=== PATIENT | male | born 1965 | race Caucasian/White ===

== ENCOUNTER 2018-05-16 20:36 | Inpatient (IN) | payer BC ==
[~2018-05-16] VITALS: Ht 177.8 cm; Wt 125.2 kg
--- NOTE | 2018-05-16 21:20 | NUR ---
BIBSELF C/O ABD AND LEG SWELLING SINCE MONDAY. PT ALSO STATES SOB. +DIAPHORETIC. PT IS AAOX4. MILD S/S OF DISTRESS NOTED. PT PLACED ON WAREHOUSE SUPERVISOR AND POX. PT NOTED TO BE IN A-FIB WITH RVR, RATE 180BPM, BP STABLE. PT PLACED ON NC 2L/M PER MD. PT SAFETY AND COMOFRT MEASURES IN PLACE. EMT BEDSIDE FOR EKG. MD MADE AWARE. AWAITING MD FOR EVAL.
[2018-05-16 21:32] LABS: BASOPHILS # (AUTO) 0.3 /CMM (0.0-0.2); EOSINOPHILS % (AUTO) 0.4 % (0.0-6.0); HEMATOCRIT 43 % (39-51); LYMPHOCYTES # (AUTO) 1.4 /CMM (0.8-4.8); LYMPHOCYTES % (AUTO) 9.9 % (20.0-44.0); MEAN CORPUSCULAR HEMOGLOBIN 28 PG (26.0-33.0); MEAN CORPUSCULAR HGB CONC 33 g/dl (31.0-36.0); MEAN CORPUSCULAR VOLUME 85 fL (80-96); MONOCYTES % (AUTO) 6.7 % (2.0-12.0); NEUTROPHILS # (AUTO) 11.4 /CMM (1.8-8.9); PLATELET COUNT (AUTO) 333 /CMM (150-450); RDW COEFFICIENT OF VARIATION 15.7 (11.5-15.0); RED BLOOD CELL COUNT(AUTO) 5.02 MIL/uL (4.5-6.0); WHITE BLOOD COUNT (AUTO) 14.2 K/uL (4.3-11.0)
[2018-05-16] MEDS ORDERED: DILTIAZEM HCL 25 MG IV ONE ×4 (21:34→22:35)
[2018-05-16 21:43] LABS: CALCIUM, SERUM 9.3 mg/dL (8.5-10.1); CREATININE 1.7 mg/dL (0.6-1.3); POTASSIUM 4.8 mmol/L (3.5-5.1)
[2018-05-16 21:51] LABS: TROPONIN I 0.096 ng/mL (0.00-0.056)
[2018-05-16 21:56] LABS: ALBUMIN 3.1 g/dL (3.4-5.0); BILIRUBIN,DIRECT 0.4 mg/dL (0.0-0.2); BILIRUBIN,TOTAL 1.3 mg/dL (0.2-1.0); TOTAL PROTEIN, SERUM 6.8 g/dL (6.4-8.2)
[2018-05-16] MEDS ORDERED: DILTIAZEM HCL 25 MG IV IV ONE ×2 (22:00→23:30)
--- NOTE | 2018-05-16 22:01 | NUR ---
PT MEDICATED WITH CARDIZEM 10MG IVP PER MD HARLEY'S VERBAL ORDERS AT 2158.
--- NOTE | 2018-05-16 22:16 | NUR ---
STAIN MAKER CALLED FOR YOVANY TO BE PULLED FROM NIGHT LOCKER
--- NOTE | 2018-05-16 22:25 | NUR ---
CALLED NURSING CONTACT CENTER REPRESENTATIVE AND REQUESTED AN ICU BED FOR THIS PT
[2018-05-16] MEDS ORDERED: DILTIAZEM HCL IV 125 MG in IV NS 0.9% 100 ML IV PRN (22:30)
[2018-05-16] MEDS ORDERED: ASPIRIN 325 MG TABLET PO ONE (22:30)
--- NOTE | 2018-05-16 22:40 | NUR ---
ASSIGNED TO ICU RM#: [id number], DX: A-FIB WITH RVR, ACCEPTING: CASPER MENDENHALL
--- NOTE | 2018-05-16 22:40 | NUR ---
CALLED [facility] FOR PANEL CALL AND CASPER MENDENHALL WAS PAGED.
[2018-05-16] MEDS ORDERED: ASPIRIN 325 MG TABLET ONE (22:48)
--- NOTE | 2018-05-16 23:19 | NUR ---
REPORT GIVEN TO GUN WELDERASHER CHEN FOR SAL.
--- NOTE | 2018-05-16 23:20 | NUR ---
CHAMPION OF SUSTAINABLE DESIGN NOTE RECEIVED REPORT FROM ER NURSE BRYAN
--- NOTE | 2018-05-16 23:39 | NUR ---
ECONOMIC DEVELOPMENT MANAGER INITIAL NOTE RECEIVED PATIENT AWAKE A/OX4, ABLE TO MAKE NEEDS KNOWN. DENIES PAIN OR DISCOMFORT. NO RESPIRATORY DISTRESS NOTED, ON 2LPMO2 VIA NC, SPO2 99%. SKIN WARM AND DRY TO TOUCH. PER PATIENT HE ONLY HAS SOB ON EXERTION, BUT NOT IN REST. ON TELE AFIB UNCONTROLLED. ON CARDIZEM GTT AT 5MG/HR. PER PATIENT HE STARTED HAVING SWELLING ON HIS ABDOMEN AND LEGS ON MONDAY, AND STARTED HAVING SOB ON EXERTION ABOUT A COUPLE DAYS AGO, AND SWELLING WORSENED. NOTED WITH BLE SWELLING PITTING +4 AND LOWER ABDOMEN SWELLING, PITTING +3, NON-TENDER, REDNESS, WARM TO TOUCH, PER PATIENT IT'S NORMALLY NOT RED. ORIENTED PATIENT TO ROOM, AND CALL LIGHT SYSTEM, PATIENT VERBALIZED UNDERSTANDING. BLE ELEVATED. HOB ELEVATED. SIDE RAILS UP AND LOCKED. BED KEPT AT LOWEST POSITION. CALL LIGHT KEPT WITHIN EASY REACH. WILL CONTINUE TO MONITOR.
[2018-05-16 23:45] VITALS: BP 135/92
[2018-05-17] VITALS (31 sets, daily range): BP systolic 83–142; BP diastolic 36–88
[2018-05-17] MEDS ORDERED: DEXTROSE 50%-WATER 50 ML DISP.SYRIN IV PRN
[2018-05-17] MEDS ORDERED: NITROGLYCERIN 0.4 MG/TAB BOTTLE SL PRN
[2018-05-17] MEDS ORDERED: MAG HYDROX/AL HYDROX/SIMETH 30 ML UDC PO PRN
[2018-05-17] MEDS ORDERED: ACETAMINOPHEN 325 MG TABLET PO PRN
[2018-05-17] MEDS ORDERED: FUROSEMIDE 40 MG/4 ML VIAL IV ONE
[2018-05-17] MEDS ORDERED: MORPHINE SULFATE INJ 2 MG/ML DISP.SYRIN IV PRN
[2018-05-17] MEDS ORDERED: DOCUSATE SODIUM 100 MG CAPSULE PO PRN
[2018-05-17] MEDS ORDERED: ONDANSETRON HCL/PF 4 MG/2 ML VIAL IVP PRN
[2018-05-17] MEDS ORDERED: DILTIAZEM HCL IV 125 MG in IV NS 0.9% 100 ML IV PRN (00:30)
[2018-05-17 04:53] LABS: BASOPHILS % (AUTO) 0.1 % (0.0-2.0); EOSINOPHILS % (AUTO) 0.1 % (0.0-6.0); HEMATOCRIT 39 % (39-51); HEMOGLOBIN 12.3 g/dL (13.5-17.5); LYMPHOCYTES # (AUTO) 0.7 /CMM (0.8-4.8); LYMPHOCYTES % (AUTO) 6.5 % (20.0-44.0); MEAN CORPUSCULAR HEMOGLOBIN 28 PG (26.0-33.0); MEAN CORPUSCULAR HGB CONC 32 g/dl (31.0-36.0); MEAN CORPUSCULAR VOLUME 88 fL (80-96); MONOCYTES # (AUTO) 0.8 /CMM (0.1-1.30); NEUTROPHILS # (AUTO) 9.8 /CMM (1.8-8.9); NEUTROPHILS % (AUTO) 86.3 % (43.0-81.0); PLATELET COUNT (AUTO) 283 /CMM (150-450); RDW COEFFICIENT OF VARIATION 16.6 (11.5-15.0); RED BLOOD CELL COUNT(AUTO) 4.37 MIL/uL (4.5-6.0); WHITE BLOOD COUNT (AUTO) 11.3 K/uL (4.3-11.0)
[2018-05-17 05:04] LABS: CALCIUM, SERUM 8.7 mg/dL (8.5-10.1); CREATININE 1.5 mg/dL (0.6-1.3); MAGNESIUM 2.3 mg/dL (1.8-2.4); PHOSPHORUS 4.8 mg/dL (2.5-4.9); POTASSIUM 4.7 mmol/L (3.5-5.1)
[2018-05-17 05:11] LABS: APPEARANCE,URINE CLEAR (CLEAR); BILIRUBIN,URINE NEGATIVE (NEGATIVE); BLOOD, URINE NEGATIVE Ery/uL (NEGATIVE); COLOR,URINE OTHER (YELLOW); KETONES,URINE NEGATIVE (NEGATIVE); LEUKOCYTE ESTERASE ,URINE TRACE (NEGATIVE); NITRITE, URINE NEGATIVE (NEGATIVE); PH,URINE 5.5 (5.0-8.0); PROTEIN,URINE NEGATIVE (NEGATIVE); UGLUCOSE NEGATIVE (NEGATIVE); UROBILINOGEN,URINE 0.2 EU/dL (0.2)
[2018-05-17 05:18] LABS: BACTERIA,URINE Rare /HPF (None Seen); RBC,URINE 0-2 /HPF (0-2); SQUAMOUS EPITHELIAL CELL,UR Rare /HPF (None Seen); WBC,URINE 0-2 /HPF (0-3)
[2018-05-17 05:21] LABS: THYROID STIMULATING HORMONE 1.777 uIU/mL (0.358-3.74)
[2018-05-17] MEDS ORDERED: FUROSEMIDE 40 MG/4 ML VIAL IV SCH ×3 (05:30→09:00)
[2018-05-17] MEDS ORDERED: MORPHINE SULFATE INJ 4 MG/ML DISP.SYRIN IV PRN (06:44)
[2018-05-17] MEDS: BLOOD SUGAR DIAGNOSTIC 1 EACH STRIP IN SCH ×4 (07:41→21:58)
--- NOTE | 2018-05-17 07:44 | NUR ---
RETAIL LEADER CLOSING NOTE NO SIGNIFICANT CHANGES. NO RESPIRATORY DISTRESS NOTED, ON 2LPMO2 VIA NC. PT STATES HE'S FEELING MUCH BETTER. WITH F/C PATENT AND INTACT DRAINING BY GRAVITY, WITH GOOD URINE OUTPUT. WITH CARDIZEM AT 15 MG/HR, ON TELE AFIB UNCONTROLLED 115-120. HOB ELEVATED. SIDE RAILS UP AND LOCKED. BED KEPT AT LOWEST POSITION. CALL LIGHT KEPT WITHIN EASY REACH. CONTINUITY OF CARE ENDORSED TO AM NURSE.
--- NOTE | 2018-05-17 08:19 | NUR ---
WOUND CARE CONSULT: PT PRESENTS WITH REDNESS AND TIGHT SKIN TO ABDOMEN. DEFER TO MD. PT ALSO PRESENTS WITH RED RASH TO GROIN AND PERINEAL AREAS, PRESENT ON ADMISSION. RECOMMENDATIONS MADE FOR SKIN CARE AND PROTECTION. DISCUSSED WITH NURSING STAFF. PT ABLE TO REPOSITION IN BED AND IS AMBULATORY PER NURSING STAFF. ASCENCION DAVIS NOTED. WILL SEE PRN. CURRENT CATHY SCORE IS 20. Addendum: 05/17/18 at 0821 by REMIGIO SADLER WNDNU Amended: Links added.
[2018-05-17] MEDS ORDERED: Z GUARD REMEDY 2 OZ OINT TP PRN (08:30)
[2018-05-17] MEDS ORDERED: BUMETANIDE INJ 8 MG in IV NS 0.9% 48 ML IV ONE (08:30)
[2018-05-17] MEDS ORDERED: DIGOXIN INJ 0.5 MG/2 ML AMPUL IV ONE (08:32)
[2018-05-17] MEDS: ASPIRIN EC 325 MG TABLET.DR PO SCH (08:54)
[2018-05-17] MEDS: Z GUARD REMEDY 2 OZ OINT TP SCH (08:55)
[2018-05-17] MEDS: CARVEDILOL 12.5 MG TABLET PO SCH ×2 (08:55→21:43)
[2018-05-17] MEDS: CLOTRIMAZOLE 1% 15 GM TUBE TP SCH ×2 (08:56→17:09)
[2018-05-17] MEDS ORDERED: SIMV10TA6 PO (09:31)
[2018-05-17] MEDS ORDERED: VALS320T2 PO (09:31)
[2018-05-17] MEDS: RIVAROXABAN 10 MG TABLET PO SCH ×2 (09:36→17:00)
--- NOTE | 2018-05-17 10:40 | NUR ---
WEB MANAGER NOTE 0720: Received patient awake, A/Ox4. On 2LPM of O2 via NC, 98% Sat. Afib 110-140's on the monitor. With PIVs intact. Carty cath intact, noted with clear pale yellow urine drained to BSD. On Cardizem drip 15mg/hr. No c/o chest pain or any discomfort at this time. Verbalized his breathing is better from last night when he arrived in the hospital. With BLE edema, kept elevated with pillows. 0820: S/E by Dr. gamez, with order for Bumex drip, Coreg, Xarelto and Dig, patient aware for the new orders. Will try to titrate off the Cardizem drip. 1040: No any significant changes noted at this time. Afib 100's now.
[2018-05-17] MEDS: INSULIN REGULAR, HUMAN 100 UNIT/ML 3 ML VIAL SQ PRN ×2 (13:01→21:59)
[2018-05-17] MEDS: DIGOXIN INJ 0.5 MG/2 ML AMPUL IV SCH ×2 (13:56→20:30)
--- NOTE | 2018-05-17 17:48 | NUR ---
ACCESS LIAISON NOTE 1130: Ended Cardizem drip, with episode of SBP 80's. Placed HOB flat and held Bumex. 1230: SBP 110's, able to restart Bumex. 1630: Updated Dr. Rios, patient off Cardizem and Afib ois more controlled now 110's. With order to may transfer to Tele. Made nurse sup aware. Reported to Andreas RN for the transfer. Patient aware re: tje transfer, verbalized understanding. 1745: Transferred patient via bed. No significant changes noted. Still Afib 110's. All belongings with the patient during the transfer.
--- NOTE | 2018-05-17 18:53 | NUR ---
RN NOTE: PATIENT RECEIVED FROM ICU ALERT AWAKE ORIENTED X4. ON 2LPM O2, DENIES BREATHING DIFFICULTY. DENIES PAIN & DISCOMFORT. F/C INTACT, DRAINING WELL WITH GRAVITY. S/P BUMEX DRIP. BLE PITTING EDEMA +2, +3. IV SITE INTACT, SL. SAFETY MEASURES OBSERVED. CALL LIGHT WITHIN REACH. WILL CONTINUE TO MONITOR.
--- NOTE | 2018-05-17 20:18 | NUR ---
RN NOTES RECEIVED PATIENT AWAKE IN BED WITH NO DISTRESS NOTED. ON 02 AT 2LPM VIA NASAL CANNULA WELL TOLERATED. BREATHING EVEN AND UNLABORED. ALERT AND ORIENTED, VERBALLY ABLE TO COMMUNICATE NEEDS. NO COMPLAINT OF PAIN OF THIS TIME. NEEDS ATTENDED. KEPT CLEAN AND DRY. WILL CONTINUE TO MONITOR.
[2018-05-17] MEDS ORDERED: ENOXAPARIN SODIUM 40 MG/0.4 ML DISP.SYRIN SQ SCH ×2 (21:00)
[2018-05-17] MEDS ORDERED: ATORVASTATIN 10 MG TABLET PO SCH (22:00)
[2018-05-18] VITALS (8 sets, daily range): BP systolic 98–116; BP diastolic 56–82
[2018-05-18 06:33] LABS: BASOPHILS % (AUTO) 0.2 % (0.0-2.0); EOSINOPHILS % (AUTO) 1.1 % (0.0-6.0); HEMATOCRIT 37 % (39-51); LYMPHOCYTES # (AUTO) 0.6 /CMM (0.8-4.8); LYMPHOCYTES % (AUTO) 5.6 % (20.0-44.0); MEAN CORPUSCULAR HEMOGLOBIN 28 PG (26.0-33.0); MEAN CORPUSCULAR HGB CONC 33 g/dl (31.0-36.0); MEAN CORPUSCULAR VOLUME 87 fL (80-96); MONOCYTES # (AUTO) 0.8 /CMM (0.1-1.30); MONOCYTES % (AUTO) 7.4 % (2.0-12.0); NEUTROPHILS # (AUTO) 8.8 /CMM (1.8-8.9); NEUTROPHILS % (AUTO) 85.7 % (43.0-81.0); PLATELET COUNT (AUTO) 267 /CMM (150-450); RDW COEFFICIENT OF VARIATION 16.7 (11.5-15.0); RED BLOOD CELL COUNT(AUTO) 4.24 MIL/uL (4.5-6.0); WHITE BLOOD COUNT (AUTO) 10.3 K/uL (4.3-11.0)
[2018-05-18 06:43] LABS: TROPONIN I 0.035 ng/mL (0.00-0.056)
[2018-05-18 06:45] LABS: ALBUMIN 2.3 g/dL (3.4-5.0); BILIRUBIN,TOTAL 0.6 mg/dL (0.2-1.0); CALCIUM, SERUM 7.9 mg/dL (8.5-10.1); CREATININE 1.4 mg/dL (0.6-1.3); PHOSPHORUS 4.2 mg/dL (2.5-4.9); POTASSIUM 3.1 mmol/L (3.5-5.1); TOTAL PROTEIN, SERUM 5.3 g/dL (6.4-8.2)
--- NOTE | 2018-05-18 06:59 | NUR ---
RN CLOSING NOTES ALERT AND ORIENTED, IN BED RESTING COMFORTABLY WITH NO COMPLAINT OF PAIN OR DISCOMFORT. NO DISTRESS NOTED. BREATHING EVEN AND UNLABORED. VITAL SIGNS WNL. NEEDS ATTENDED. KEPT CLEAN AND DRY. EKG DONE. RESULT IN THE CHART. CALLED MOTOR REBUILDER. SPOKE WITH DR SHIRLEY AND RELAYED RESULTS OF EKG, NO ORDERS FOR NOW. WILL ENDORSE TO AM SHIFT FOR CONTINUITY OF CARE.
[2018-05-18] MEDS: INSULIN REGULAR, HUMAN 100 UNIT/ML 3 ML VIAL SQ PRN (07:05)
[2018-05-18] MEDS: BLOOD SUGAR DIAGNOSTIC 1 EACH STRIP IN SCH ×4 (07:05→21:43)
--- NOTE | 2018-05-18 07:15 | NUR ---
TELE/RN INITIAL NOTES RECEIVED REPORT FROM ASHER AUGUSTINE, EKG RESULT: AFRIB WITH RVR, TEST INSPECTION ENGINEER ANTISQUEAK FILLER CASPER NOTIFIED WITH NO NEW ORDER RECEIVED PT IN BED IN SEMI FOWLERS POSITION, ON 2L O2 VIA NC, TOLERATING WELL, NO ACUTE DISTRESS NOTED. AFIB ON TELE MONITOR. DENIES CHEST/ANY PAIN AT THIS TIME. WITH FC IN PLACED, DRAINING CLEAR YELLOW URINE. INTACT AND PATENT RH AND LH SL. SAFETY MEASURES OBSERVED. CALL LIGHT WITHIN REACH. WILL CONTINUE TO MONITOR AND NOTIFY
--- NOTE | 2018-05-18 07:50 | NUR ---
RN NOTES PT WAS SEEN AND EXAMINED BY DR HASKINS, CARDIO WITH NEW ORDERS MADE. PT AWARE AND AGREED. ORDERS NOTED AND CARRIED OUT. WILL CONT TO MONITOR
[2018-05-18] MEDS: POTASSIUM CHLORIDE 20 MEQ TAB.PRT.SR PO SCH ×3 (08:15→10:24)
[2018-05-18] MEDS: ASPIRIN EC 325 MG TABLET.DR PO SCH (08:17)
[2018-05-18] MEDS: CARVEDILOL 12.5 MG TABLET PO SCH ×2 (08:18→21:43)
[2018-05-18] MEDS: CLOTRIMAZOLE 1% 15 GM TUBE TP SCH ×2 (08:22→17:12)
[2018-05-18] MEDS: Z GUARD REMEDY 2 OZ OINT TP SCH (08:23)
[2018-05-18] MEDS ORDERED: BUMETANIDE INJ 8 MG in IV NS 0.9% 48 ML IV ONE (09:00)
[2018-05-18] MEDS ORDERED: IV NS 0.9% 250 ML IV ONE (09:30)
[2018-05-18] MEDS: RIVAROXABAN 10 MG TABLET PO SCH (17:02)
--- NOTE | 2018-05-18 19:04 | NUR ---
TELE/RN CLOSING NOTES PT REMAINED STABLE. NO ACUTE DISTRESS NOTED. NO C/O PAIN/CHEST PAIN. IV LINES KEPT INTACT AND PATENT. KEPT FC IN PLACED. SAFETY MEASURES MAINTAINED. ALL NEEDS ATTENDED. ENDORSED TO PM SHIFT
[2018-05-19] VITALS: BP 92/70
[2018-05-19 04:00] VITALS: BP 105/67
[2018-05-19 06:28] LABS: BASOPHILS % (AUTO) 0.1 % (0.0-2.0); EOSINOPHILS % (AUTO) 1.2 % (0.0-6.0); HEMATOCRIT 41 % (39-51); HEMOGLOBIN 13.3 g/dL (13.5-17.5); LYMPHOCYTES # (AUTO) 0.6 /CMM (0.8-4.8); LYMPHOCYTES % (AUTO) 5.7 % (20.0-44.0); MEAN CORPUSCULAR HEMOGLOBIN 28 PG (26.0-33.0); MEAN CORPUSCULAR HGB CONC 32 g/dl (31.0-36.0); MEAN CORPUSCULAR VOLUME 87 fL (80-96); MONOCYTES # (AUTO) 0.9 /CMM (0.1-1.30); MONOCYTES % (AUTO) 9.6 % (2.0-12.0); NEUTROPHILS # (AUTO) 8.2 /CMM (1.8-8.9); NEUTROPHILS % (AUTO) 83.4 % (43.0-81.0); PLATELET COUNT (AUTO) 292 /CMM (150-450); RDW COEFFICIENT OF VARIATION 16.9 (11.5-15.0); WHITE BLOOD COUNT (AUTO) 9.8 K/uL (4.3-11.0)
[2018-05-19 06:58] LABS: ALBUMIN 2.3 g/dL (3.4-5.0); BILIRUBIN,TOTAL 0.7 mg/dL (0.2-1.0); CREATININE 1.2 mg/dL (0.6-1.3); MAGNESIUM 1.9 mg/dL (1.8-2.4); PHOSPHORUS 4.4 mg/dL (2.5-4.9); POTASSIUM 3.2 mmol/L (3.5-5.1); TOTAL PROTEIN, SERUM 5.6 g/dL (6.4-8.2)
--- NOTE | 2018-05-19 07:10 | NUR ---
TELE/RN INITIAL NOTES RECEIVED REPORT PM RNDIAMOND. PT IN BED IN SEMI FOWLERS POSITION. A/O X4. NO SOB NOTED. DENIES PAIN. AFIB ON TELE. ON 2L O2 VIA NC, TOLERATING WELL. WITH INTACT RHAND AND LHAND SL. NO SIGNS OF INFECTION NOTED. FC IN PLACED DRAINING YELLOW COLORED URINE. SAFETY MEASURES OBSERVED. CALL LIGHT WITHIN REACH. WILL CONT TO MONITOR
[2018-05-19] MEDS: BLOOD SUGAR DIAGNOSTIC 1 EACH STRIP IN SCH ×4 (07:36→22:02)
[2018-05-19 08:00] VITALS: BP 119/69
[2018-05-19] MEDS: CARVEDILOL 12.5 MG TABLET PO SCH ×2 (08:11→21:53)
[2018-05-19] MEDS: ASPIRIN EC 325 MG TABLET.DR PO SCH (08:11)
[2018-05-19] MEDS: CLOTRIMAZOLE 1% 15 GM TUBE TP SCH ×2 (08:12→17:15)
[2018-05-19] MEDS: Z GUARD REMEDY 2 OZ OINT TP SCH (08:13)
--- NOTE | 2018-05-19 09:20 | NUR ---
RN NOTES SEEN AND EXAMINED BY DR HASKINS WITH NEW ORDERS MADE. PER OK TO D/C O2 IF TOLERATED RA. MD ORDER TO RE-WEIGH PT. CURRENT WEIGHT 293.4 LBS. MADE AWARE. PLACED PT ON RA, SATURATING 95%. WILL CONT TO MONITOR.
[2018-05-19] MEDS ORDERED: BUMETANIDE INJ 8 MG in IV NS 0.9% 48 ML IV ONE (09:30)
[2018-05-19] MEDS: POTASSIUM CHLORIDE 20 MEQ TAB.PRT.SR PO SCH ×4 (09:40→13:37)
[2018-05-19] MEDS: INSULIN REGULAR, HUMAN 100 UNIT/ML 3 ML VIAL SQ PRN (12:36)
[2018-05-19 16:00] VITALS: BP 123/68
[2018-05-19] MEDS: RIVAROXABAN 10 MG TABLET PO SCH ×2 (17:17→17:38)
--- NOTE | 2018-05-19 19:15 | NUR ---
MS/RN CLOSING NOTES PT IN BED RESTING COMFORTABLY IN NO SIGNS OF ACUTE DISTRESS/CHANGES THROUGHOUT SHIFT. DENIES PAIN. SAFETY MEASURES OBSERVED. ALL NEEDS ATTENDED. ENDORSED TO PM SHIFT NURSE FOR SAL
--- NOTE | 2018-05-19 19:20 | NUR ---
RN OPENING NOTES RECEIVED PT IN BED, ALERT AND ORIENTED X 4, PT'S FRIEND AT BEDSIDE. PT NOTED WITH NO SOB, BREATHING EVEN AND UNLABORED, IN NO ACUTE DISTRESS AND DENIES PAIN AT THIS TIME. PT WITH A VEGAS CATH, DRAINING WELL WITH YELLOW URINE. ALL PATIENT'S NEEDS ATTENDED TO AT THIS TIME. PLACED CALL LIGHT WITHIN EASY REACH. BED IN LOW POSITION AND LOCKED IN PLACE. WILL CONTINUE TO MONITOR PT.
[2018-05-19 20:00] VITALS: BP 107/78
--- NOTE | 2018-05-19 22:00 | NUR ---
RN NOTES PATIENT NOTED WITH EPISODE OF LOOSE STOOL, NO BLOOD IN STOOL AND DENIES ABDOMINAL PAIN. WILL CONTINUE TO MONITOR.
[2018-05-20] VITALS: BP 91/60
--- NOTE | 2018-05-20 02:30 | NUR ---
RN NOTES NOTED PATIENT WITH 2ND EPISODE OF LOOSE STOOL. UPON ASSESSMENT, NO BLOOD PRESENT IN STOOL, PT DENIES ABDOMINAL PAIN, NOTED WITH NO DIZZINESS. ALL PATIENT'S NEEDS ATTENDED TO. WILL CONTINUE TO MONITOR PT.
[2018-05-20 04:00] VITALS: BP 95/59
[2018-05-20] MEDS: BLOOD SUGAR DIAGNOSTIC 1 EACH STRIP IN SCH ×4 (06:33→21:01)
--- NOTE | 2018-05-20 06:35 | NUR ---
RN MS CLOSING NOTES RESIDENT IN BED, ALERT AND ORIENTED X 4, NO SOB NOTED, BREATHING EVEN AND UNLABORED, TOLERATING ROOM AIR. PT WITH VEGAS CATH DRAINING WELL WITH YELLOW URINE. NOTED PT WITH 2 EPISODES OF LOOSE STOOL. PT SLEPT WELL. DENIES PAIN AT THIS TIME AND IS IN STABLE CONDITION. ALL PATIENT'S NEEDS ATTENDED TO. PLACED CALL LIGHT WITHIN EASY REACH. WILL ENDORSE TO AM SHIFT NURSE FOR CONTINUITY OF CARE.
[2018-05-20 07:01] LABS: BASOPHILS # (AUTO) 0.1 /CMM (0.0-0.2); BASOPHILS % (AUTO) 0.6 % (0.0-2.0); EOSINOPHILS % (AUTO) 1.3 % (0.0-6.0); HEMATOCRIT 41 % (39-51); HEMOGLOBIN 13.5 g/dL (13.5-17.5); LYMPHOCYTES # (AUTO) 0.7 /CMM (0.8-4.8); LYMPHOCYTES % (AUTO) 5.9 % (20.0-44.0); MEAN CORPUSCULAR HEMOGLOBIN 28 PG (26.0-33.0); MEAN CORPUSCULAR HGB CONC 33 g/dl (31.0-36.0); MEAN CORPUSCULAR VOLUME 87 fL (80-96); MONOCYTES # (AUTO) 1.3 /CMM (0.1-1.30); MONOCYTES % (AUTO) 10.1 % (2.0-12.0); NEUTROPHILS # (AUTO) 10.3 /CMM (1.8-8.9); NEUTROPHILS % (AUTO) 82.1 % (43.0-81.0); PLATELET COUNT (AUTO) 294 /CMM (150-450); RDW COEFFICIENT OF VARIATION 16.5 (11.5-15.0); RED BLOOD CELL COUNT(AUTO) 4.78 MIL/uL (4.5-6.0); WHITE BLOOD COUNT (AUTO) 12.5 K/uL (4.3-11.0)
--- NOTE | 2018-05-20 07:15 | NUR ---
RN INITIAL NOTES: REC'D PT AWAKE ON BED, A/O X 4, NOT IN ANY DISTRESS. ON ROOM AIR, NO SOB. HAS FC PATENT & INTACT, DRAINING W/ YELLOWISH URINE OUTPUT. HAS 2 IV LINE ACCESS: R HAND G18 & L HAND G18, SL, BOTH PATENT & INTACT W/ NO S/SX OF INFECTION/INFILTRATION NOTED. PROVIDED COMFORT & SAFETY ENVIRONMENT. BED KEPT LOW & IN LOCKED POS. CALL LIGHT PLACED W/IN REACH. WILL CONTINUE TO MONITOR & ATTEND PT NEEDS.
[2018-05-20 07:16] LABS: ALBUMIN 2.4 g/dL (3.4-5.0); BILIRUBIN,TOTAL 0.9 mg/dL (0.2-1.0); CREATININE 1.1 mg/dL (0.6-1.3); MAGNESIUM 1.7 mg/dL (1.8-2.4); PHOSPHORUS 3.8 mg/dL (2.5-4.9); TOTAL PROTEIN, SERUM 5.6 g/dL (6.4-8.2)
[2018-05-20 07:26] LABS: POTASSIUM 2.8 mmol/L (3.5-5.1)
[2018-05-20 08:00] VITALS: BP 106/64
[2018-05-20] MEDS: ASPIRIN EC 325 MG TABLET.DR PO SCH (08:49)
[2018-05-20] MEDS: CARVEDILOL 12.5 MG TABLET PO SCH ×2 (08:49→20:57)
[2018-05-20] MEDS: CLOTRIMAZOLE 1% 15 GM TUBE TP SCH ×2 (08:50→17:14)
[2018-05-20] MEDS: Z GUARD REMEDY 2 OZ OINT TP SCH (08:50)
--- NOTE | 2018-05-20 09:30 | NUR ---
RN NOTES: PT SEEN & EXAMINED BY DR. HASKINS W/ ORDERS MADE & CARRIED OUT.
[2018-05-20] MEDS: Magnesium 1GM/D5W 100ML PREMIX 100 ML IV SCH ×2 (09:54→11:05)
[2018-05-20] MEDS: POTASSIUM CHLORIDE 20 MEQ TAB.PRT.SR PO SCH ×5 (09:54→14:23)
[2018-05-20] MEDS: INSULIN REGULAR, HUMAN 100 UNIT/ML 3 ML VIAL SQ PRN ×3 (11:47→20:56)
[2018-05-20 12:00] VITALS: BP 95/66
[2018-05-20 16:00] VITALS: BP 105/67
[2018-05-20] MEDS ORDERED: BUMETANIDE INJ 8 MG in IV NS 0.9% 48 ML IV ONE (16:00)
--- NOTE | 2018-05-20 16:00 | NUR ---
RN NOTES: PT SEEN & EXAMINED BY DR. BALDERRAMA.
[2018-05-20] MEDS: RIVAROXABAN 10 MG TABLET PO SCH (17:14)
--- NOTE | 2018-05-20 18:30 | NUR ---
RN CLOSING NOTES: NO ACUTE CHANGES NOTED W/IN SHIFT. PT TOLERATED ROOM AIR, NO SOB. FC KEPT PATENT & INTACT, DRAINING W/ YELLOWISH URINE OUTPUT, STILL ON BUMEX IV. 2 IV LINE ACCESS: R HAND G18 & L HAND G18, SL, KEPT BOTH PATENT & INTACT W/ NO S/SX OF INFECTION/INFILTRATION NOTED. KEPT WELL RESTED. NEEDS ATTENDED. BED KEPT LOW & IN LOCKED POS. CALL LIGHT PLACED W/IN REACH. WILL ENDORSE TO PM RN FOR SAL.
--- NOTE | 2018-05-20 19:20 | NUR ---
RN MS INITIAL NOTES, RECEIVED PATIENT IN BED ALERT AND ORIENTED X4, ABLE TO COMMUNICATE NEEDS AND CONCERNS, BREATHING EVEN AND UNLABORED, NO SOB/ACUTE DISTRESS NOTED AT THIS TIME, ON RA SATURATION 100% AT THIS TIME, IV SITES INTACT AND PATENT IN RIGHT HAND AND LEFT HAND, BUMEX RUNNING AT THIS TIME, INFUSING WELL AND PATIENT TOLERATED WELL, ALL NEEDS PROVIDED AND ATTENDED, BED LOCKED AND IN LOWEST POSITION, ALL NEEDS ATTENDED AND RENDERED, CALL LIGHT W/I REACH, WILL CONTINUE TO MONITOR CLOSELY.
[2018-05-20 20:00] VITALS: BP 108/69
[2018-05-21] VITALS: BP 104/62
[2018-05-21 04:36] VITALS: BP 98/59
[2018-05-21 06:32] LABS: ALBUMIN 2.4 g/dL (3.4-5.0); BILIRUBIN,TOTAL 0.8 mg/dL (0.2-1.0); CALCIUM, SERUM 8.2 mg/dL (8.5-10.1); CREATININE 1.3 mg/dL (0.6-1.3); PHOSPHORUS 3.3 mg/dL (2.5-4.9); POTASSIUM 2.9 mmol/L (3.5-5.1)
--- NOTE | 2018-05-21 06:55 | NUR ---
RN MS NOTES, REPORTED FROM LAB BY [facility] FOR CO2 41.
--- NOTE | 2018-05-21 06:55 | NUR ---
RN MS CLOSING NOTES, PATIENT IN BED AWAKE AT THIS TIME ABLE TO COMMUNICATE NEEDS AND CONCERNS, BREATHING EVEN AND UNLABORED, NO SOB/ACUTE DISTRESS NOTED AT THIS TIME, , IV SITES INTACT AND PATENT IN RIGHT HAND, ALL NEEDS PROVIDED AND ATTENDED, REMAINED STABLE, BED LOCKED AND IN LOWEST POSITION, CALL LIGHT W/I REACH, WILL ENDORSE CONTINUITY OF CARE TO ONCOMING NURSE.
--- NOTE | 2018-05-21 07:15 | NUR ---
RN MS INITIAL NOTES RECEIVED PT FROM PM NURSE, PT RESTING IN BED, NO ACUTE CHANGES NOTED, NO SOB, A&O X4 UKRAINIAN SPEAKING, ON RA SAT ABOVE 97%, VEGAS CATH DRAINING URINE VIA GRAVITY, RT HAND 18G IV LT HAND 18 G IV ALL INTACT AND PATENT NO INFILTRATION NOTED, ALL NEEDS MET AT THIS TIME, ALL SAFETY MEASURES INITIATED, WILL CONTINUE TO MONITOR.
--- NOTE | 2018-05-21 07:54 | NUR ---
OUTPATIENT PHYSICAL THERAPIST ASSISTANT NOTES PTS BP 88/55, NO S/S OF DIZZINESS OR LIGHTHEADED, PUT HEAD DOWN LEGS UP WILL RECHECK AGAIN.
[2018-05-21 08:00] VITALS: BP 88/66
[2018-05-21 08:03] VITALS: BP 88/55
[2018-05-21] MEDS: CARVEDILOL 12.5 MG TABLET PO SCH (08:03)
[2018-05-21] MEDS ORDERED: FUROSEMIDE 40 MG TABLET PO SCH (09:00)
[2018-05-21] MEDS ORDERED: POTASSIUM CHLORIDE 20 MEQ TAB.PRT.SR PO SCH (09:00)
[2018-05-21] MEDS: ASPIRIN EC 325 MG TABLET.DR PO SCH (09:06)
[2018-05-21] MEDS: BLOOD SUGAR DIAGNOSTIC 1 EACH STRIP IN SCH ×2 (09:07→12:29)
[2018-05-21] MEDS: Z GUARD REMEDY 2 OZ OINT TP SCH (09:08)
[2018-05-21] MEDS: CLOTRIMAZOLE 1% 15 GM TUBE TP SCH (09:08)
[2018-05-21] MEDS: POTASSIUM CHLORIDE 20 MEQ TAB.PRT.SR PO SCH ×5 (09:30→14:58)
[2018-05-21] MEDS ORDERED: FURO40TA5 PO (11:09)
[2018-05-21] MEDS ORDERED: RIVA10TA PO (11:09)
[2018-05-21] MEDS ORDERED: CARV12.52 PO (11:09)
[2018-05-21] MEDS: INSULIN REGULAR, HUMAN 100 UNIT/ML 3 ML VIAL SQ PRN (12:35)
--- NOTE | 2018-05-21 13:11 | NUR ---
RN MS NOTES PER MD ORDER VEGAS CATH REMOVED WITH 1500 CC OUTPUT.
--- NOTE | 2018-05-21 15:20 | NUR ---
RN MS ENDING NOTES PTS STABLE, VS STABLE, A&O X4 AMERICAN SPEAKING, DC PAPERWORK SIGNED AND COMPLETED, EXIT CARE INSTRUCTIONS GIVEN TO PT AND COMPLETED, VEGAS CATH REMOVED PER MD ORDER, URINE OUTPUT 1500 CC, LT HAND AND RT HAND IV SITES REMOVED NO INFILTRATION OR REDNESS NOTED, ALL DUE MEDS GIVEN, PRESCRIPTION PROVIDED TO PT AND FAXED TO PTS PHARMACY, PTS WAS INSTRUCTED TO F/U WITH DR HASKINS AND PT AWARE OF DC INSTRUCTIONS, WORK EXCUSE FORM SIGNED AND COMPLETED, ID BAND REMOVED, BELONGINGS LIST SIGNED AND COMPLETED, ALL NEEDS MET, PT LEFT PRIVATE CAR WITH SISTER, ESCORTED WITH WHEELCHAIR WITH CTC OPERATOR.
== END 2018-05-21 15:18 | disposition home or self-care (01) | DRG 280 ==
LOC: ER 20:42 → ICU 22:52 → TELE1 05-17 17:43 → MEDSG1 05-19 09:34
PROVIDERS: ADMIT Registered Nurse; ATTEND Registered Nurse
DX: I13.0 Hypertensive heart and chronic kidney disease with heart failure and stage 1 through stage 4 chronic kidney disease, or unspecified chronic kidney disease (principal); I21.A1 Myocardial infarction type 2; J96.01 Acute respiratory failure with hypoxia; E43 Unspecified severe protein-calorie malnutrition; I50.21 Acute systolic (congestive) heart failure; Z68.42 Body mass index [BMI] 45.0-49.9, adult; N17.9 Acute kidney failure, unspecified; R65.10 Systemic inflammatory response syndrome (SIRS) of non-infectious origin without acute organ dysfunction; I11.0 Hypertensive heart disease with heart failure; I48.91 Unspecified atrial fibrillation; Z82.49 Family history of ischemic heart disease and other diseases of the circulatory system; Z80.3 Family history of malignant neoplasm of breast; Z80.52 Family history of malignant neoplasm of bladder; G47.33 Obstructive sleep apnea (adult) (pediatric); E78.5 Hyperlipidemia, unspecified; E78.00 Pure hypercholesterolemia, unspecified; E66.01 Morbid (severe) obesity due to excess calories; N18.9 Chronic kidney disease, unspecified; I42.9 Cardiomyopathy, unspecified; I70.0 Atherosclerosis of aorta; E87.6 Hypokalemia
CPT/HCPCS: 36415; 71045-TC; 80048-TC; 80053-TC; 80061-TC; 80074; 80076-TC; 81000-TC; 82962-TC; 83735-TC; 83880; 84100-TC; 84443-TC; 84484-TC; 85025-TC; 87081-TC; 93307-TC; A4216; A4606; J1160; J1650; J1815; J1940; J3475; J3490; J7030; J7050; Z7610

== ENCOUNTER 2018-06-19 06:08 | Day surgery (SDC) | payer BC ==
[~2018-06-19] VITALS: Ht 177.8 cm; Wt 131.1 kg
[2018-06-19] VITALS (13 sets, daily range): BP systolic 96–132; BP diastolic 66–95
[~2018-06-19 06:08] MED LIST: CARV12.52 PO; FURO40TA5 PO; RIVA10TA PO; SIMV10TA6 PO; VALS320T2 PO
--- NOTE | 2018-06-19 06:30 | NUR ---
TOOLING MECHANICDIRECTOR TEEN POST NOTES ADMITTED THIS 53 YEAR OLD GENTLEMAN WHO CAME IN FROM HOME, AMBULATORY, STEADY. PATIENT IS SCHEDULED FOR CARDIOVERSION WITH DR HASKINS. PATIENT ALERT AND OREINTED X4, ABLE TO VERBALIZE ALL NEEDS, FAMILY MEMBER AT BEDSIDE. LEFT HAND #20 GAUGE INSERTED WITH GOOD VENOUS RETURN, WILL INITIATE IVF ORDERED. PLACED ON BEDSIDE SAFETY TEACHER, SHOWING UNCONTROLLED AFIB, HR 120s-150s. PER PATIENT, SKIN IS INTACT, REFUSING FULL SKIN ASSESSMENT AT THIS TIME. NOTED WITH PITTING EDEMA OF BILATERAL FEET +3. PLAN OF CARE DISCUSSED WITH THE PATIENT, WHO VERBALIZES UNDERSTANDING. WILL CONTINUE TO CLOSELY MONITOR.
[2018-06-19] MEDS ORDERED: IV D5/ 0.9% NACL 1,000 ML IV PRN (07:30)
[2018-06-19] MEDS ORDERED: ANESTHESIA TRAY IN PYXIS 1 EA TRAY MC ONE (07:31)
--- NOTE | 2018-06-19 07:42 | NUR ---
RECEIVED CARE OF PATIENT FROM RN ADALGISA. PER DR HASKINS PATIENT IS TO HAVE CARDIOVERSION FOR UNCONTROLLED AFIB. PATIENT BP STABLE, DENIES SOB, DIFFICULTY BREATHING OR PAIN. ROOM AIR STABLE. AFIB RVR 130'S-140'S. IV RUNNING PER MD ORDER C/D/I/P. DR HASKINS AWARE PENDING ANESTHESIOLOGIST ARRIVAL. PATIENT NEEDS ASSESSED AND MET. CALL LIGHT IN REACH. SAFETY, ASPIRATION PRECAUTIONS IN PLACE.
--- NOTE | 2018-06-19 08:09 | NUR ---
DR HASKINS AT BEDSIDE FOR CARDIOVERSION. PATIENT CONVERTED TO SINUS TACH 108 NO COMPLICATIONS NOTED. VS STABLE. ON 2LPM NC 98%. PATIENT LETHARGIC AT THIS TIME. ASPIRATION PRECAUTIONS IN PLACE. WILL MONITOR
--- NOTE | 2018-06-19 08:15 | NUR ---
PATIENT AWAKE A/0X4, DENIES SOB, DIFFICULTY BREATHING OR PAIN. SINUS TACH 101. EDUCATED PATIENT ON DR HASKINS ORDERS. FOLLOW UP IN 1 WEEK AT OFFICE; PER PATIENT REQUEST WILL CALL AND MAKE APPOINTMENT. PATIENT EDUCATED ON DISCHARGE PLANNING, POST OP CARDIOVERSION, AND MEDICATIONS. PATIENT STATES UNDERSTANDING. PER DR HASKINS ORDER CARDIAC DIET FOR BREAKFAST, OBTAIN LABS AND OK FOR DISCHARGE THIS MORNING.
[2018-06-19] MEDS ORDERED: POTASSIUM CHLORIDE 20 MEQ TAB.PRT.SR PO ONE (08:30)
[2018-06-19] MEDS ORDERED: FUROSEMIDE 20 MG/2 ML VIAL IV ONE (08:30)
[2018-06-19 08:42] LABS: BASOPHILS % (AUTO) 0.2 % (0.0-2.0); EOSINOPHILS % (AUTO) 1.6 % (0.0-6.0); HEMATOCRIT 36 % (39-51); HEMOGLOBIN 11.6 g/dL (13.5-17.5); LYMPHOCYTES # (AUTO) 0.7 /CMM (0.8-4.8); LYMPHOCYTES % (AUTO) 9.6 % (20.0-44.0); MEAN CORPUSCULAR HEMOGLOBIN 27 PG (26.0-33.0); MEAN CORPUSCULAR HGB CONC 32 g/dl (31.0-36.0); MEAN CORPUSCULAR VOLUME 86 fL (80-96); MONOCYTES # (AUTO) 0.5 /CMM (0.1-1.30); MONOCYTES % (AUTO) 7.1 % (2.0-12.0); NEUTROPHILS # (AUTO) 6.1 /CMM (1.8-8.9); NEUTROPHILS % (AUTO) 81.5 % (43.0-81.0); PLATELET COUNT (AUTO) 193 /CMM (150-450); RDW COEFFICIENT OF VARIATION 18.1 (11.5-15.0); RED BLOOD CELL COUNT(AUTO) 4.22 MIL/uL (4.5-6.0); WHITE BLOOD COUNT (AUTO) 7.5 K/uL (4.3-11.0)
[2018-06-19 08:52] LABS: CALCIUM, SERUM 8.7 mg/dL (8.5-10.1); CREATININE 1.3 mg/dL (0.6-1.3); POTASSIUM 4.4 mmol/L (3.5-5.1)
[2018-06-19] MEDS ORDERED: CARVEDILOL 12.5 MG TABLET PO SCH (09:00)
[2018-06-19] MEDS ORDERED: FUROSEMIDE 40 MG TABLET PO SCH (09:00)
[2018-06-19] MEDS ORDERED: DRONEDARONE HYDROCHLORIDE 400 MG TABLET PO SCH (09:00)
[2018-06-19 09:04] LABS: ALBUMIN 3.1 g/dL (3.4-5.0); BILIRUBIN,TOTAL 0.8 mg/dL (0.2-1.0); MAGNESIUM 2.4 mg/dL (1.8-2.4); PHOSPHORUS 4.2 mg/dL (2.5-4.9); TOTAL PROTEIN, SERUM 6.4 g/dL (6.4-8.2)
--- NOTE | 2018-06-19 09:16 | NUR ---
PER DR HASKINS REQUEST PATIENT APPOINTMENT SET UP FOR May AT 1PM.
--- NOTE | 2018-06-19 09:31 | NUR ---
PER DR HASKINS ONLY GIVE 80MG IVP LASIX. RESUME 40MG PO LASIX AT HOME PER SCHEDULE. NOTIFIED PATIENT ASKING ABOUT SWELLING. PER MD OK TO SEE HIM ON MONDAY/MONDAY IF SOB RETURNS OR SWELLING GETS WORSE. NOTIFIED PATIENT.
--- NOTE | 2018-06-19 09:53 | NUR ---
RT AT BEDSIDE FOR EKG
--- NOTE | 2018-06-19 10:08 | NUR ---
CONVEYOR SYSTEM OPERATOR PATIENT STABLE. VS STABLE. DENIES SOB, DIFFICULTY BREATHING PAIN. ALL DUE MEDS GIVEN AND ALL NEEDS MET. PER DR HASKINS PATIENT TO BE DISCHARGED HOME AND FOLLOW UP APPOINTMENT SCHEDULED May 1PM. PATIENT CARDIOVERTED FROM UNCONTROLLED AFIB TO SINUS TACH 100-115. PATIENT EDUCATED ON DISCHARGE, F;U APPT, MEDICATIONS. PATIENT STATES UNDERSTANDING OF ALL EDUCATION AND DISCHARGE ALL QUESTIONS ANSWERED. PATIENT TAKEN HOME BY S/O AT BEDSIDE WITH ALL BELONGINGS. NO COMPLICATIONS OR INJURY NOTED.
[2018-06-19] MEDS ORDERED: RIVAROXABAN 10 MG TABLET PO SCH (17:00)
== END 2018-06-19 12:25 | disposition home or self-care (01) ==
LOC: DS 06:08 → ICU 06:29 → UNDOADMIN 06:29 → UNDODISIN 10:08 → DS 12:25
PROVIDERS: ATTEND Internal Medicine Interventional Cardiology
DX: I48.0 Paroxysmal atrial fibrillation (principal); I13.0 Hypertensive heart and chronic kidney disease with heart failure and stage 1 through stage 4 chronic kidney disease, or unspecified chronic kidney disease; N18.9 Chronic kidney disease, unspecified; I50.9 Heart failure, unspecified; I21.A1 Myocardial infarction type 2; G47.33 Obstructive sleep apnea (adult) (pediatric); E66.01 Morbid (severe) obesity due to excess calories; Z68.42 Body mass index [BMI] 45.0-49.9, adult; I50.21 Acute systolic (congestive) heart failure; E78.5 Hyperlipidemia, unspecified; Z82.49 Family history of ischemic heart disease and other diseases of the circulatory system; Z80.52 Family history of malignant neoplasm of bladder; Z79.899 Other long term (current) drug therapy
CPT/HCPCS: 36415; 80053; 83735; 84100; 85025; 92960; 93005; A4606; J1940; Z7610